=== PATIENT | male | born 1955 | race Caucasian/White ===

== ENCOUNTER → 2018-01-27 | Outpatient (CLI) | payer OTHER ==
[~2018-01-27] MED LIST: ALBUTEROL INHALER INH; ARTHRITIS MEDICINE; ASPIR 8181 MG PO; AZITHROMYCIN 2250 MG PO; COLCRYS0.6 MG PO; HYDROXYZINE HCL25 M1 PO; IBUPROFEN; IBUPROFEN200 M2; INDOMETHACIN 5050 M1 PO; LEVAQUIN PO; LIPITOR10 MG PO; PERCOCET 5-3251 EACH PO; PROAIR HFA8.5 GM IH; SPIRIVA INH; SYMBICORT160 MCG/4. INH; TRAMADOL; TRAMADOL 50 MG50 MG PO; VICODIN 5-5001 EACH PO; ZPAK PO; ZYRTEC10 M5 PO
== END ==
LOC: M.CT 09:57
DX: J44.9 Chronic obstructive pulmonary disease, unspecified (principal); H53.2 Diplopia; J84.10 Pulmonary fibrosis, unspecified

== ENCOUNTER → 2018-04-06 | Outpatient (CLI) | payer OTHER | LOC: M.LAB 11:34 | PROVIDERS: Psychiatry & Neurology Neuromuscular Medicine | DX: J43.9 Emphysema, unspecified (principal); H53.2 Diplopia; F10.10 Alcohol abuse, uncomplicated; M81.0 Age-related osteoporosis without current pathological fracture; M06.9 Rheumatoid arthritis, unspecified ==

== ENCOUNTER 2018-07-06 15:09 | Emergency (ER) | payer OTHER ==
[~2018-07-06] VITALS: Ht 177.8 cm; Wt 59.0 kg
[2018-07-06 15:48] LABS: HEMATOCRIT 47.3 % (42.0-52.0); HEMOGLOBIN 16.2 gm/dL (14.0-18.0); MCH 31.7 pg (26.0-34.0); MCHC 34.2 g/dL (28.0-37.0); MCV 92.7 fL (80.0-100.0); MPV 7.8 fl. (7.2-11.1); NUCLEATED RBCS 0 /100WBC; PLATELET COUNT* 192 thou/uL (150-400); RDW-CV 13.9 % (10.5-14.5); WBC 6.5 thou/uL (4.0-11.0)
[2018-07-06 15:59] LABS: ANION GAP 12 mmol/L (7-16); BUN 12 mg/dL (7-18); CALCIUM 9.3 mg/dL (8.5-10.1); CHLORIDE 99 mmol/L (98-107); CO2 26 mmol/L (21-32); GLUCOSE 100 mg/dL (70-99); POTASSIUM 3.9 mmol/L (3.5-5.1); SODIUM 137 mmol/L (136-145)
[2018-07-06 16:09] LABS: ALBUMIN 3.7 g/dL (3.4-5.0); ALKALINE PHOSPHATASE 103 U/L (46-116); LIPASE 108 U/L (73-393); MAGNESIUM 1.8 mg/dL (1.8-2.4); NT-PRO BRAIN NAT PEPTIDE 247 pg/mL (<300); SGOT 20 U/L (15-37); SGPT 19 U/L (30-65); TOTAL BILIRUBIN 0.6 mg/dL (<0.1-1.0); TOTAL PROTEIN 7.8 g/dL (6.4-8.2); TROPONIN-I LEVEL <0.06 ng/mL (<0.06)
[2018-07-06 16:50] LABS: ABSOLUTE EOSINOPHILS 0.1 thou/uL (0.0-0.7); ABSOLUTE LYMPHOCYTES 0.8 thou/uL (0.8-5.3); ABSOLUTE MONOCYTES 0.4 thou/uL (0.0-1.2); ABSOLUTE NEUTROPHILS 5.2 thou/uL (1.6-8.1)
[2018-07-06 16:51] LABS: PLATELET ESTIMATE ADEQUATE
[2018-07-06] MEDS ORDERED: ZOVIRAX800 MG PO (17:36)
[2018-07-06] MEDS ORDERED: PREDNISONE 10 M10 M1 PO (17:36)
[2018-07-06] MEDS ORDERED: HYDROCODONE-AP1 EAC6 PO (17:38)
[2018-07-06 17:50] VITALS: BP 142/74
--- NOTE | 2018-07-07 11:34 | EKG ---
[place] [address] ELECTROCARDIOGRAM REPORT Name: GAEL MIRELES Room: 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
== END 2018-07-06 17:50 | disposition home or self-care (01) ==
LOC: M.ERS 15:09
PROVIDERS: Emergency Medicine Emergency Medical Services
DX: B02.9 Zoster without complications (principal); M06.9 Rheumatoid arthritis, unspecified; M81.0 Age-related osteoporosis without current pathological fracture; J44.9 Chronic obstructive pulmonary disease, unspecified; F17.210 Nicotine dependence, cigarettes, uncomplicated

== ENCOUNTER 2020-04-27 10:22 | Inpatient (IN) | payer OTHER ==
[~2020-04-27] VITALS: Ht 177.8 cm; Wt 64.9 kg
[~2020-04-27 10:22] MED LIST changes: +HYDROCODONE-AP1 EAC6 PO; +PREDNISONE 10 M10 M1 PO; +ZOVIRAX800 MG PO
[2020-04-27 10:35] VITALS: BP 179/102
[2020-04-27 11:06] LABS: HEMATOCRIT 48.5 % (42.0-52.0); MCH 35.8 pg (26.0-34.0); MCHC 35.1 g/dL (28.0-37.0); MCV 102.2 fL (80.0-100.0); MPV 8.2 fl. (7.2-11.1); NUCLEATED RBCS 0 /100WBC; PLATELET COUNT* 230 thou/uL (150-400); RBC 4.74 mil/uL (4.50-6.00); WBC 10.9 thou/uL (4.0-11.0)
[2020-04-27 11:14] LABS: CALCIUM 9.4 mg/dL (8.5-10.1); CREATININE 1.4 mg/dL (0.6-1.3); POTASSIUM 4.1 mmol/L (3.5-5.1)
[2020-04-27 11:16] LABS: ALBUMIN 3.8 g/dL (3.4-5.0); TOTAL BILIRUBIN 0.9 mg/dL (<0.1-1.0); TOTAL PROTEIN 8.7 g/dL (6.4-8.2)
[2020-04-27 11:38] LABS: ABSOLUTE LYMPHOCYTES 1.3 thou/uL (0.8-5.3); ABSOLUTE MONOCYTES 0.3 thou/uL (0.0-1.2); ABSOLUTE NEUTROPHILS 9.3 thou/uL (1.6-8.1); PLATELET ESTIMATE ADEQUATE
[2020-04-27 13:25] VITALS: BP 155/83
[2020-04-27] MEDS ORDERED: ZYRTEC10 M5 PO (13:52)
[2020-04-27] MEDS ORDERED: FLONASE 0.05%50 MCG NARES (13:53)
[2020-04-27] MEDS ORDERED: IBU800 MG PO (13:53)
[2020-04-27] MEDS ORDERED: EXCEDRIN MIGRA1 EAC1 PO (13:54)
[2020-04-27] MEDS ORDERED: OMEPRAZOLE10 MG PO (13:54)
[2020-04-27] MEDS ORDERED: PEPTO-BISMOL262 M1 PO (13:54)
[2020-04-27 14:51] LABS: URINE BILIRUBIN NEGATIVE (Negative); URINE BLOOD TRACE (Negative); URINE CLARITY CLEAR; URINE COLOR YELLOW; URINE GLUCOSE-RANDOM NEGATIVE (Negative); URINE KETONES NEGATIVE (Negative); URINE LEUKOCYTES-REFLEX NEGATIVE (Negative); URINE NITRITE-REFLEX NEGATIVE (Negative); URINE PROTEIN NEGATIVE (Negative); URINE SPECIFIC GRAVITY <= 1.005 (1.005-1.030); URINE UROBILINOGEN 0.2 E.U./dl (0.2-1.0)
--- NOTE | 2020-04-27 16:21 | EKG ---
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1955 Requested By: Cordell Doty Order Number: [id number] MD: Robson Briseno Measurements Intervals [place] Rate: 109 P: -50 TN: 129 QRS: 53 QRSD: 87 T: 57 QT: 330 QTc: 445 Interpretive Statements Sinus or ectopic atrial tachycardia Low voltage, extremity leads Consider remote anterior infarct Compared to ECG 07/06/2018 15:18:25 Low QRS voltage now present Myocardial infarct finding now present Electronically Signed On 04-27-2020 16:21:16 CDT by Robson Briseno [email or web address] <ELECTRONICALLY SIGNED> By: Robson Briseno MD, [facility] 04/27/20 1621 1045 1045 Robson Briseno MD, [facility] /EPI
[2020-04-27 16:34] VITALS: BP 160/84
[2020-04-27 20:00] VITALS: BP 149/76
[2020-04-28] VITALS: BP 131/63
[2020-04-28 04:00] VITALS: BP 153/63
[2020-04-28 04:58] LABS: HEMATOCRIT 39.6 % (42.0-52.0); MCH 35.9 pg (26.0-34.0); MCV 102.5 fL (80.0-100.0); RBC 3.86 mil/uL (4.50-6.00); RDW-CV 12.9 % (10.5-14.5); WBC 9.7 thou/uL (4.0-11.0)
[2020-04-28 05:18] LABS: HEMOGLOBIN 13.8 gm/dL (14.0-18.0)
[2020-04-28 05:26] LABS: ALBUMIN 2.8 g/dL (3.4-5.0); CALCIUM 7.9 mg/dL (8.5-10.1); CREATININE 0.7 mg/dL (0.6-1.3); MAGNESIUM 1.7 mg/dL (1.8-2.4); TOTAL BILIRUBIN 0.7 mg/dL (<0.1-1.0); TOTAL PROTEIN 6.3 g/dL (6.4-8.2)
[2020-04-28 05:30] LABS: POTASSIUM 3.1 mmol/L (3.5-5.1)
[2020-04-28 06:22] LABS: AMP/METHAMP Negative (Negative); BARBITURATES Negative (Negative); BENZODIAZEPINES Negative (Negative); COCAINE Negative (Negative); METHADONE Negative (Negative); OPIATES Negative (Negative); PCP Negative (Negative); THC POSITIVE (Negative)
[2020-04-28 08:00] VITALS: BP 150/67
[2020-04-28 11:26] LABS: AMMONIA < 10 umol/L (11-32); CALCIUM 7.9 mg/dL (8.5-10.1)
[2020-04-28 12:00] VITALS: BP 151/76
[2020-04-28 16:00] VITALS: BP 138/61
[2020-04-28 20:00] VITALS: BP 146/75
[2020-04-29] VITALS: BP 140/61
[2020-04-29 04:00] VITALS: BP 154/82
[2020-04-29 04:38] LABS: HEMATOCRIT 35.6 % (42.0-52.0); HEMOGLOBIN 12.6 gm/dL (14.0-18.0); MCH 36.1 pg (26.0-34.0); MCHC 35.3 g/dL (28.0-37.0); MCV 102.2 fL (80.0-100.0); MPV 8.8 fl. (7.2-11.1); RBC 3.48 mil/uL (4.50-6.00); RDW-CV 13.1 % (10.5-14.5); WBC 11.2 thou/uL (4.0-11.0)
[2020-04-29 05:03] LABS: CALCIUM 7.3 mg/dL (8.5-10.1); CREATININE 0.7 mg/dL (0.6-1.3); MAGNESIUM 1.8 mg/dL (1.8-2.4); PHOSPHORUS* 2.1 mg/dL (2.5-4.9); POTASSIUM 3.5 mmol/L (3.5-5.1)
[2020-04-29 08:00] VITALS: BP 146/72
[2020-04-29 12:00] VITALS: BP 155/73
[2020-04-29 18:01] VITALS: BP 147/83
[2020-04-29 20:00] VITALS: BP 132/60
[2020-04-30] VITALS: BP 153/76
[2020-04-30 04:00] VITALS: BP 151/70
[2020-04-30 04:38] LABS: HEMATOCRIT 35.2 % (42.0-52.0); HEMOGLOBIN 12.3 gm/dL (14.0-18.0); MCH 35.2 pg (26.0-34.0); MCV 100.7 fL (80.0-100.0); MPV 8.1 fl. (7.2-11.1); RBC 3.5 mil/uL (4.50-6.00); RDW-CV 12.8 % (10.5-14.5); WBC 10.1 thou/uL (4.0-11.0)
[2020-04-30 05:04] LABS: ALBUMIN 2.3 g/dL (3.4-5.0); CREATININE 0.6 mg/dL (0.6-1.3); MAGNESIUM 1.6 mg/dL (1.8-2.4); TOTAL BILIRUBIN 1.3 mg/dL (<0.1-1.0)
[2020-04-30 05:23] LABS: CALCIUM 7.4 mg/dL (8.5-10.1)
[2020-04-30 05:27] LABS: POTASSIUM 2.5 mmol/L (3.5-5.1)
[2020-04-30 07:45] VITALS: BP 167/93
[2020-04-30 16:47] VITALS: BP 152/67
[2020-04-30 16:49] VITALS: BP 152/67
[2020-04-30 19:40] VITALS: BP 140/88
[2020-05-01] VITALS: BP 151/69
[2020-05-01 04:00] VITALS: BP 153/82
[2020-05-01 05:10] LABS: HEMATOCRIT 34.8 % (42.0-52.0); HEMOGLOBIN 12.1 gm/dL (14.0-18.0); MCH 35.2 pg (26.0-34.0); MCHC 34.7 g/dL (28.0-37.0); MCV 101.5 fL (80.0-100.0); RBC 3.43 mil/uL (4.50-6.00); RDW-CV 12.9 % (10.5-14.5); WBC 10.4 thou/uL (4.0-11.0)
[2020-05-01 08:00] VITALS: BP 160/75
[2020-05-01 09:45] LABS: POTASSIUM 3.1 mmol/L (3.5-5.1)
[2020-05-01 09:47] LABS: CREATININE 0.7 mg/dL (0.6-1.3)
[2020-05-01 12:37] VITALS: BP 171/82
[2020-05-01 14:36] LABS: CHLORIDE ND mmol/L (98-107); POTASSIUM ND mmol/L (3.5-5.1); SODIUM ND mmol/L (136-145)
[2020-05-01 14:37] LABS: ANION GAP ND mmol/L (7-16); BUN ND mg/dL (7-18); CO2 ND mmol/L (21-32)
[2020-05-01 14:38] LABS: CREATININE ND mg/dL (0.6-1.3); GLUCOSE ND mg/dL (70-99); SGOT ND U/L (15-37)
[2020-05-01 14:39] LABS: ALKALINE PHOSPHATASE ND U/L (46-116); CALCIUM ND mg/dL (8.5-10.1); MAGNESIUM ND mg/dL (1.8-2.4); TOTAL BILIRUBIN ND mg/dL (<0.1-1.0)
[2020-05-01 14:40] LABS: ALBUMIN ND g/dL (3.4-5.0); SGPT ND U/L (30-65); TOTAL PROTEIN ND g/dL (6.4-8.2)
[2020-05-01 17:10] VITALS: BP 152/80
[2020-05-01 20:15] VITALS: BP 166/84
[2020-05-02] VITALS: BP 139/61
[2020-05-02 04:00] VITALS: BP 162/77
[2020-05-02 04:56] LABS: HEMATOCRIT 36.5 % (42.0-52.0); HEMOGLOBIN 12.9 gm/dL (14.0-18.0); MCH 35.3 pg (26.0-34.0); MCHC 35.2 g/dL (28.0-37.0); MCV 100.5 fL (80.0-100.0); MPV 7.9 fl. (7.2-11.1); RBC 3.64 mil/uL (4.50-6.00); WBC 10.7 thou/uL (4.0-11.0)
[2020-05-02 05:22] LABS: ALBUMIN 2.6 g/dL (3.4-5.0); CALCIUM 8.8 mg/dL (8.5-10.1); CREATININE 0.7 mg/dL (0.6-1.3); MAGNESIUM 1.6 mg/dL (1.8-2.4); POTASSIUM 3.5 mmol/L (3.5-5.1); TOTAL BILIRUBIN 1.2 mg/dL (<0.1-1.0); TOTAL PROTEIN 7.2 g/dL (6.4-8.2)
[2020-05-02] MEDS ORDERED: TRAMADOL 50 MG50 MG PO (07:46)
[2020-05-02] MEDS ORDERED: PRENATAL PO (07:46)
[2020-05-02] MEDS ORDERED: PROTONIX40 M2 PO (07:46)
[2020-05-02 08:31] VITALS: BP 143/76
[2020-05-02 11:25] VITALS: BP 143/76
--- NOTE | 2020-05-02 18:07 | PATH ---
[address] [address] PATHOLOGY RPT PROCEDURE Name: GAEL MIRELES Room: [address] IN M.R.#: [id number] Admission: 04/27/20 Date of : 59 Discharge: 05/02/20 Report #: [id number] Path Case #: [id number] [facility] Accession Number: [id number] . 01 Material submitted: . PART A: esophagus - ESOPHAGEAL BIOPSY AT 33CM PART B: esophagus - ESOPHAGEAL BIOPSY AT 28CM . 01 Clinical history: . FOR DYSPHAGIA X2 . 02 Diagnosis: A and B. Esophageal biopsy at 33 cm and at 28 cm: - Mild chronic esophagitis typical of reflux. See comment. LBQ 05/02/2020 1419 Local . 02 Comment: Eosinophils average less than 2 per high power field in both specimens. (DAVIN/db; 05/02/2020) . 02 Electronically signed: . Rd Reyes MD, Pathologist NPI- [id number] . 01 Gross description: . A. The specimen is received in formalin, labeled "Gael Mireles, esophageal biopsy at 33 cm". Received are two segments of pale pearson soft tissue measuring 0.3 cm each in maximum dimensions. The specimen is submitted entirely in cassette A1. . B. The specimen is received in formalin, labeled "Gael Mireles, esophageal biopsy at 28 cm". Received are two segments of pale pearson soft tissue ranging in size from 0.3 to 0.5 cm in maximum dimensions. The specimen is submitted entirely in cassette B1. (CAA; 05/01/2020) QAC/QAC 05/02/2020 1417 Local . 02 Pathologist provided ICD-10: K20.90 . 02 CPT . 667761, [id number] Specimen Comment: A courtesy copy of this report has been sent to [phone] Specimen Comment: [phone], Specimen Comment: Report sent to ,DR OLIVARES / DR FUENTES Performed at: 01 [place] [address] PATHOLOGY RPT PROCEDURE Name: GAEL MIRELES Room: [address] DIS IN M.R.#: [id number] Admission: 04/27/20 Date of : 59 Discharge: 05/02/20 Report #: [id number] Path Case #: [id number] [address] [facility] [address], [place], [place] [id number] MD Jacob Valenzuela MD Phone: [phone] Performed at: [address] [facility] [address] [place] [id number] MD [address] Reyes MD Phone: [phone]
--- NOTE | 2020-05-05 14:04 | CON ---
[address] [address] CONSULTATION Name: GAEL MIRELES Room: [address] IN .R.#: [id number] Admission: 04/27/20 Attend Phys: Angel Luis Waite, Discharge: 05/02/20 Date of : 59 Report #: [id number] THIS REPORT FOR: //name// cc: Herrera Samuels Steve T. DO ~ THIS REPORT FOR: //name// CC: Herrera Waite DATE OF SERVICE: 04/27/2020 HISTORY OF PRESENT ILLNESS: This is a pleasant 64-year-old male with no significant past medical history, who is presenting for evaluation of abdominal pain. The patient reports the pain is located in the epigastric region and radiates backwards. The pain has been more or less constant, sharp, burning in nature. He reports associated nausea, vomiting. Denies any diarrhea, hematemesis or hematochezia. The patient denies similar episodes in the past. PAST MEDICAL HISTORY: Nonsignificant. PAST SURGICAL HISTORY: Nonsignificant. SOCIAL HISTORY: The patient drinks 6-pack of beer a day, has been doing this for the last 10 years, has a 53-dkmo-wrqe smoking history, smokes pack and a half of cigarettes per day. Denies any recreational drugs. FAMILY HISTORY: Mother had breast cancer, otherwise no history of GI related malignancies. REVIEW OF SYSTEMS: Comprehensive 10-point review of systems is negative except for what was mentioned in the HPI. PHYSICAL EXAMINATION: VITAL SIGNS: Temperature 36.1, pulse rate 101, blood pressure 155/83, respirations 23, pulse oximetry 97% on room air. GENERAL: The patient is alert, awake, oriented x 3. HEENT: Pupils are equal, round, reactive to light and accommodation. Mucous membranes are moist. There is no congestion. LUNGS: Clear to auscultation bilaterally. CARDIOVASCULAR: Rate and rhythm regular. S1, S2 present. ABDOMEN: Soft. There is no distention, guarding or rigidity. EXTREMITIES: Warm, well perfused. There is no edema. SKIN: Warm and dry. LABORATORY DATA: Hemoglobin 17.0, hematocrit 48.5, MCV 102.2, [place] [address] CONSULTATION Name: GAEL MIRELES Room: [address]#: [id number] Admission: 04/27/20 Attend Phys: Angel Luis Waite, Discharge: 05/02/20 Date of : 59 Report #: [id number] 230, WBC count 10.9. Sodium 136, potassium 4.1, chloride 97, bicarbonate 26, BUN 9, creatinine 1.4, total bilirubin 0.9, AST 35, ALT 32, alkaline phosphatase 136, lipase 8666. IMAGING: CT abdomen and pelvis, this demonstrates acute pancreatitis with prominent peripancreatic edema and small volume fluid tracks inferiorly in the retroperitoneum. No abscess or hemorrhage detected. Diffuse hepatic steatosis. ASSESSMENT AND PLAN: Pleasant 64-year-old male with history of alcohol abuse and long-term history of smoking, presenting with abdominal pain. The patient found to have peripancreatic edema as well as elevated lipase suggestive of acute pancreatitis. The patient has mild acute pancreatitis without any local complications. I would recommend to discuss the cessation of alcohol use with the patient. I would recommend starting him on a clear liquid diet today and advancing his diet as tolerated. Thank you for this consultation. <ELECTRONICALLY SIGNED> By: Dilshad Jacques MD 05/05/20 1404 1528 [id number] Jacques MD /nt
== END 2020-05-02 11:54 | disposition home or self-care (01) | DRG 438 ==
LOC: M.ERS 10:22 → M.2W 11:49 → M.TBA-ER 11:49 → M.2W 13:51
PROVIDERS: Emergency Medicine Emergency Medical Services; Internal Medicine; ADMIT Family Medicine; ATTEND Family Medicine
PROC: 0DB58ZX Excision of Esophagus, Via Natural or Artificial Opening Endoscopic, Diagnostic (ICD-10-PCS; principal; 2020-04-27)
PROC: 0D718ZZ Dilation of Upper Esophagus, Via Natural or Artificial Opening Endoscopic (ICD-10-PCS; principal; 2020-04-27)
DX: K85.20 Alcohol induced acute pancreatitis without necrosis or infection (principal); N17.0 Acute kidney failure with tubular necrosis; F12.10 Cannabis abuse, uncomplicated; E87.6 Hypokalemia; M06.9 Rheumatoid arthritis, unspecified; F10.10 Alcohol abuse, uncomplicated; Y90.9 Presence of alcohol in blood, level not specified; D75.89 Other specified diseases of blood and blood-forming organs; R13.10 Dysphagia, unspecified; E86.0 Dehydration; F17.210 Nicotine dependence, cigarettes, uncomplicated; K76.0 Fatty (change of) liver, not elsewhere classified; K21.9 Gastro-esophageal reflux disease without esophagitis; K44.9 Diaphragmatic hernia without obstruction or gangrene; M81.0 Age-related osteoporosis without current pathological fracture; J44.9 Chronic obstructive pulmonary disease, unspecified; Z20.828 Contact with and (suspected) exposure to other viral communicable diseases; Z79.82 Long term (current) use of aspirin; Z79.899 Other long term (current) drug therapy

== ENCOUNTER → 2021-08-06 | Outpatient (CLI) | payer OTHER ==
[~2021-08-06] MED LIST changes: +EXCEDRIN MIGRA1 EAC1 PO; +FLONASE 0.05%50 MCG NARES; +IBU800 MG PO; +OMEPRAZOLE10 MG PO; +PEPTO-BISMOL262 M1 PO; +PRENATAL PO; +PROTONIX40 M2 PO
== END ==
LOC: M.ULTRA 12:44
DX: I70.293 Other atherosclerosis of native arteries of extremities, bilateral legs (principal); L81.9 Disorder of pigmentation, unspecified; R09.89 Other specified symptoms and signs involving the circulatory and respiratory systems